=== PATIENT | female | born 1960 | race Caucasian/White ===

== ENCOUNTER 2021-12-30 13:52 | Outpatient (CLI) | payer MEDICAID | END 2021-12-30 13:53 | disposition critical access hospital (66) | LOC: EMS 13:52 | DX: R14.0 Abdominal distension (gaseous) (principal); R10.9 Unspecified abdominal pain; R60.0 Localized edema | CPT/HCPCS: A0425; A0429; A0999 ==

== ENCOUNTER 2021-12-30 14:13 | Observation (INO) | payer MEDICAID, OTHER ==
--- NOTE | 2021-12-30 14:30 | ED Physician Documentation ---
History of Present Illness - Stated complaint Stated Complaint: BILAT LEG PX - History obtained from History obtained from: Patient - History of Present Illness Timing: How many days ago (2) Pain level max: 3 Pain level now: 3 - Additonal information Additional information: Patient is a 61-year-old female with a history of alcoholic liver cirrhosis who presents to the emergency department complaining of increased swelling to the abdomen and bilateral lower extremities over the past several days. She states she is on medications at home but does not know what they are. She is visiting from [place]. She states that she is here for alcohol detox and rehab. She states that her medications are normally given to her in [place]. Diana dixon states that she had a recent stay at [facility] for 3 weeks, she then went home and started drinking again. Has been back in [facility] for 4 days now. No abdominal pain. No nausea or vomiting. No chest pain. No shortness of breath. Review of Systems Ten Systems: 10 systems reviewed and negative Constitutional: denies: Fever, Chills Respiratory: denies: Cough GI: denies: Nausea, Vomiting, Diarrhea Skin: denies: Rash Musculoskeletal: denies: Neck pain, Back pain Neurologic: denies: Headache PD PAST MEDICAL HISTORY - Past Medical History Past Medical History: Yes GI: Other (Alcoholic cirrhosis) - Allergies Allergies/Adverse Reactions: Allergies Allergy/AdvReac Type Severity Reaction Status Date / Time oxycodone [From OxyContin] Allergy Rash Verified 12/30/21 18:11 Penicillins Allergy Unknown Verified 12/30/21 16:39 - Living Situation Living Situation: reports: With family Living Arrangement: reports: At home - Social History Does the pt smoke?: Yes Does the pt drink ETOH?: Yes ETOH Use: Wine - Family History Family history: reports: Non contributory PD ED PE NORMAL - Vitals Vital signs reviewed: Yes - General General: Alert and oriented X 3, No acute distress - HEENT HEENT: PERRL, Moist mucous membranes - Neck Neck: Supple, no meningeal sign - Cardiac Cardiac: RRR, Strong equal pulses - Respiratory Respiratory: No respiratory distress, Clear bilaterally - Abdomen Abdomen: Soft, Other (Mild distention with ascites. No tenderness) - Rectal Rectal: Other (Edna RN, normal rectal exam. brown stool.) - Back Back: No spinal TTP - Derm Derm: Warm and dry - Extremities Extremities: Other (2+ bilateral lower extremity pitting edema) - Neuro Neuro: Alert and oriented X 3 - Psych Psych: Normal mood, Normal affect Results - Vitals Vitals: Vital Signs - 24 hr 12/30/21 14:22 Temperature 36.9 C Heart Rate 78 Respiratory 20 Rate Blood Pressure 151/87 H O2 Saturation 100 Oxygen O2 Source Room air - Labs Labs: Microbiology 12/30/21 15:30 Occult Blood - Final Stool Laboratory Tests 12/30/21 12/30/21 12/30/21 14:33 14:33 14:46 WBC 5.2 RBC 2.16 L Hgb 6.7 L* Hct 21.4 L MCV 99.1 H MCH 31.0 MCHC 31.3 L RDW 19.9 H Plt Count 259 MPV 10.9 H Neut # (Auto) 3.2 Lymph # (Auto) 1.2 L Schley # (Auto) 0.4 Eos # (Auto) 0.4 Baso # (Auto) 0.0 Absolute Nucleated RBC 0.00 Nucleated RBC % 0.0 PT 11.6 INR 1.0 Sodium Potassium Chloride Carbon Dioxide Anion Gap BUN Creatinine Estimated GFR (MDRD) Glucose Calcium Total Bilirubin AST ALT Alkaline Phosphatase Total Protein Albumin Globulin Albumin/Globulin Ratio Lipase Blood Type Blood Type Recheck O POSITIVE Antibody Screen Crossmatch IS Only 12/30/21 12/30/21 14:46 15:45 WBC RBC Hgb Hct MCV MCH MCHC RDW Plt Count MPV Neut # (Auto) Lymph # (Auto) Schley # (Auto) Eos # (Auto) Baso # (Auto) Absolute Nucleated RBC Nucleated RBC % PT INR Sodium 140 Potassium 4.4 Chloride 115 H Carbon Dioxide 18 L Anion Gap 7.0 BUN 29 H Creatinine 2.1 H Estimated GFR (MDRD) 24 L Glucose 94 Calcium 8.6 Total Bilirubin 0.6 AST 21 ALT 15 Alkaline Phosphatase 70 Total Protein 6.4 L Albumin 3.1 L Globulin 3.3 Albumin/Globulin Ratio 0.9 L Lipase 75 H Blood Type O POSITIVE Blood Type Recheck Antibody Screen NEGATIVE Crossmatch IS Only See Detail PD MEDICAL DECISION MAKING - ED course Complexity details: reviewed results, re-evaluated patient, considered differential, d/w patient, d/w sustainability consultant ED course: Patient is a 61-year-old female with a known history of alcoholic cirrhosis. She is unsure what medication she takes at home. [place] Noted increased swelling in her legs. Was given Lasix for the edema. Laboratory testing reveals anemia, hemoglobin 6.7. Will need blood transfusion. She states that she noticed a small amount of dark stool a few weeks ago but none since that time. She states that she has had endoscopies and colonoscopies in the past. She states the colonoscopies have been negative in the past, but the endoscopy did show a gastric ulcer. She is not currently on any medications that she is aware of for this. No abdominal pain. No chest pain. She does feel winded easily when walking. We will place the patient in observation for blood transfusion. She would likely need to follow-up with her doctor when she returns home to [place] for further evaluation. Discussed the case with Dr. Crawley, hospitalist who accepts This document was made in part using voice recognition software. While efforts are made to proofread this document, sound alike and grammatical errors may occur. Departure - Departure Disposition: ED Place in Observation Clinical Impression: Anemia Qualifiers: Anemia type: unspecified type Qualified Code(s): D64.9 - Anemia, unspecified Alcoholic cirrhosis of liver Qualifiers: Ascites presence: with ascites Qualified Code(s): K70.31 - Alcoholic cirrhosis of liver with ascites Condition: Stable Discharge Date/Time: 12/30/21 17:02
[2021-12-30 14:41] LABS: BASOPHILS % (AUTO) 0.8 %; EOSINOPHILS # (AUTO) 0.4 10^3/uL (0.0-0.7); EOSINOPHILS % (AUTO) 6.8 %; HCT - HEMATOCRIT 21.4 % (37.0-47.0); LYMPHOCYTES # (AUTO) 1.2 10^3/uL (1.5-3.5); LYMPHOCYTES % (AUTO) 22.4 %; MEAN CORPUSCULAR HGB CONC 31.3 g/dL (32.0-36.0); MEAN CORPUSCULAR VOLUME 99.1 fL (81.0-99.0); MEAN PLATELET VOLUME 10.9 fL (7.9-10.8); MONOCYTES # (AUTO) 0.4 10^3/uL (0.0-1.0); MONOCYTES % (AUTO) 8.1 %; NEUTROPHILS # (AUTO) 3.2 10^3/uL (1.5-6.6); NEUTROPHILS % (AUTO) 61.5 %; PLT - PLATELET COUNT 259 10^3/uL (130-450); RED BLOOD COUNT 2.16 10^6/uL (4.20-5.40); RED CELL DISTRIBUTION WIDTH 19.9 % (12.0-15.0); WHITE BLOOD COUNT 5.2 x10^3/uL (4.8-10.8)
[2021-12-30 14:46] LABS: HGB - HEMOGLOBIN 6.7 g/dL (12.0-16.0)
[2021-12-30 14:57] LABS: PT - PROTHROMBIN TIME 11.6 secs (9.9-12.6)
[2021-12-30 15:04] LABS: ALBUMIN 3.1 g/dL (3.2-5.5); ALBUMIN/GLOBULIN RATIO 0.9 (1.0-2.2); BILIRUBIN,TOTAL 0.6 mg/dL (0.2-1.0); CALCIUM 8.6 mg/dL (8.5-10.3); CREATININE 2.1 mg/dL (0.4-1.0); POTASSIUM 4.4 mmol/L (3.5-5.0); TOTAL PROTEIN 6.4 g/dL (6.7-8.2)
[2021-12-30] MEDS ORDERED: FUROSEMIDE 40 MG/4 ML VIAL IVP STA (15:16)
[2021-12-30] MEDS ORDERED: PANTOPRAZOLE 40 MG VIAL IVP STA (15:32)
[2021-12-30] MEDS ORDERED: ONDANSETRON 4 MG/2 ML VIAL IVP PRN (16:01)
[2021-12-30] MEDS ORDERED: ONDANSETRON ODT 4 MG TABLET TL PRN (16:01)
[2021-12-30] MEDS ORDERED: SODIUM CHLORIDE FLUSH 0.9% 10 ML SYRINGE IVP PRN (16:01)
--- NOTE | 2021-12-30 16:10 | HISTORY & PHYSICAL EXAMINATION ---
Chief Complaint - Chief Complaint Chief Complaint: legs are swollen History of Present Illness - Admitted From Admitted From:: [facility] - History Obtained From Records Reviewed: [facility] History obtained from: patient Exam Limitations: none - History of Present Illness HPI Comment/Other: 61-year-old female who drinks a bottle of wine a day and went through rehab. Her daughter approached her with intervention about a month ago. Told her she needed to stop drinking. The patient states that she had about 15 minutes to get dressed and ready and they left and she went to inpatient rehab for about 2 weeks. She got out of rehab. The day after she went right back to drinking. She drinks about a bottle of wine a day. She denies any alcohol withdrawal, seizures, syncope. She went back into rehab at this time went into [facility] in [place]. While there her legs were starting to hurt her. She noticed increasing edema. When he got to the point that it was interfering with mobility they sent her to our emergency room today. She says the swelling had started in her feet then it was in her calves. It started going up her thighs into her lower abdominal wall and buttock skin area and it scared her. She denies fever, chills. She denies cough, but feels exhausted and a little bit short of breath. Her weight has been all over the place. When she went into rehab she was 130 pounds. She dropped to 101 pounds at discharge she thinks. And in the last couple of days gone back up to 125 pounds. A while back, she does not remember 1, she does remember black stools. She thinks that she had an other episode of black stools about 3 weeks ago. But no vomiting of blood. She says she eats like a horse and has a great appetite. No epigastric discomfort, no nausea. Prior to this history, she was also seen at [facility] and had a work-up with EGD and colonoscopy. But she is vague about when that happens. She does not know if it was 1 month ago, 3 months ago, or 3 years ago. She also does not know why she went to [facility]. She cannot remember what diagnosis they gave her so when I explained to her that she has alcoholic liver disease she is surprised and tells me that no one is ever told her that she has cirrhosis. After discharge from [facility] she says that she was not given specific instructions. She does not have a primary care provider nor does she have a metal wire coating operator or liver specialist. In the emergency room her meld score is 14 points. Blood pressure is 151/87. Temperature is 36.9. 100% saturated on room air. She is a middle-aged lady who looks stated age. Well-groomed. BUN is 29, creatinine 2.1. Liver enzymes are normal. INR is 1. White cell count is 5.2, hemoglobin is 6.7. As such she is now placed in observation status to get a unit of blood. Since she is received a GI work-up, we do not feel the need to repeat that work-up here. Ultrasound in the ER shows her to have mild ascites. History - Past Medical History Cardiovascular: reports: None Respiratory: reports: None Neuro: reports: None Endocrine/Autoimmune: reports: None GI: reports: GI bleed (With anemia. She has been transfused once in the past. 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 Dad is still alive, has had heart attack. 1 brother and 1 sister. Brother has chronic leg edema and possibly congestive heart failure. Sister has mental illness. Her 3 children are healthy with no mental illness, alcoholism, high blood pressure, cancer, heart attack or stroke Living arrangement: At home Living Situation: With family Social History Notes: She was a brat and lived all over the [facility]. The longer she ever lived in one place was in [place] for 6 years. She moved to [facility] in [place]. Father continue to live all over the place and father settled in [place]. He had been living there for a while with his when she of a stroke. The patient went to go get her father and drove across country and initially moved her father in with her in Thursday. But she has too many stairs in her apartment so he lives at "the [facility]" now, a senior facility in [place]. She started smoking at the age of 17. Stopped when she was and then resumed 1 pack/day. She has been smoking regularly for at least 9 years again. She started drinking at the age of 13. Really started abusing it at the age of 17. 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 Last time she worked the spring 2020. - Substance History Abuse: Recurrent use of substance despite neg consequences: Alcohol, Other (tobacco) - POLST Patient has POLST: No POLST Status: Full Code Meds/Allgy - Allergies Allergies/Adverse Reactions: Allergies Allergy/AdvReac Type Severity Reaction Status Date / Time oxycodone [From OxyContin] Allergy Rash Verified 12/30/21 18:11 Penicillins Allergy Unknown Verified 12/30/21 16:39 Review of Systems - Constitutional Constitutional: reports: Fatigue, Weight gain, Weight loss. denies: Fever, Chills, Malaise - Eyes Eyes: reports: Vision loss. denies: Pain, Irritation, Amaurosis, Blurred vision - Ears, Nose & Throat Ears, Nose & Throat: denies: Ear pain, Hearing loss, Hearing aids, Nasal obstruction, Postnasal drainage, Sore throat, Hoarseness - Cardiovascular Cariovascular: reports: Edema, Exertional dyspnea, Decr. exercise tolerance. denies: Irregular heart rate, Palpitations, Chest pain, Lightheadedness, Syncope - Respiratory Respiratory: reports: Cough, SOB with exertion. denies: Sputum production, Wheezing, Snoring, SOB at rest - Gastrointestinal Gastrointestinal: reports: Abdominal distention, Rectal bleeding (once after the c-scope), Black stools. denies: Abdominal pain, Constipation, Diarrhea, Change in bowel habits - Genitourinary Genitourinary: reports: Incontinence. denies: Dysuria, Frequency, Urgency, Hematuria - Musculoskeletal Musculoskeletal: reports: Back pain, Muscle aches, Stiffness, Joint pain. denies: Muscle pain - Integumentary Integumentary: denies: Rash, Pruritis, Lesions, Dryness - Neurological Neurological: reports: Memory problems. denies: General weakness, Focal weakness, Headache, Dizziness, Pre-existing deficit, Abnormal gait, Seizures, Incoordination Prior Level of Functionality: Independent with activities of daily living. Helps take care of her father. Relies on him for their income to pay for his bills and her bills. Does not use any durable medical equipment. Still drives. Pays bills. Cleans house. Exam - Vital Signs Reviewed Vital Signs: Yes Vital Signs: Vital Signs x48h Temp Pulse Resp BP Pulse Ox 12/30/21 14:22 36.9 C 78 20 151/87 H 100 - Physical Exam General Appearance: positive: No acute distress, Alert, Other (Middle-aged female, looks stated age, well-nourished, well-groomed no tremulousness or diaphoresis) Eyes Bilateral: positive: PERRL, EOMI, Other (Wearing glasses) ENT: positive: No signs of dehydration Neck: positive: No JVD. negative: Stiff neck Respiratory: positive: No respiratory distress. negative: Wheezes, Rales, Rhonchi Cardiovascular: positive: Regular rate & rhythm. negative: Gallop/S4, Friction rub Abdomen: positive: Non-tender, No organomegaly, Nml bowel sounds, No distention Skin: positive: Warm, Dry Extremities: positive: Full ROM, Pedal edema (That extends all the way up to the thighs) Neurologic/Psychiatric: positive: Oriented x3 (But vague on memory. Admits that she is starting to lose her memory), CN's nml (2-12), Motor nml Conclusion/Plan - Problem List (1) Anemia Conclusion/Plan: Differential diagnosis in a patient who has alcohol abuse could be esophageal varices, gastritis. She denies diverticulosis history of gastric ulcer history. Plan: She she is already had a work-up in the recent past, I do not think that she needs to stay in the hospital to repeat an EGD or colonoscopy. She will be transfused 1 unit to get her above 7 g. I have asked her to make sure that she takes B12, B6, and iron on a regular basis. She says that she should take iron and it has changed her stool black in the past. She does not think that is what was going on when her school was black 3 weeks ago. Have also asked her to take a Protonix tablet or equivalent once a day for the next month. She needs to establish yourself with a primary care provider and be seen minimum of every 4 to 6 months. I have asked our health chemical unit operator to please get records from [facility] so I can review and verify her work-up. Qualifiers: Anemia type: unspecified type Qualified Code(s): D64.9 - Anemia, unspecified (2) Alcoholic cirrhosis of liver Conclusion/Plan: Started on spironolactone 25 twice daily. Get old records from [facility] so I can look at EGD and colonoscopy. Because of edema, which was the reason she was brought to the emergency room, I would think that she would be discharged on spironolactone 25 mg a day if not 25 mg twice a day. She would then need to establish self with a primary care provider to make sure BMP and CBC were stable. Qualifiers: Ascites presence: with ascites Qualified Code(s): K70.31 - Alcoholic cirrhosis of liver with ascites (3) Acute kidney insufficiency Conclusion/Plan: It is unknown what her baseline status is. Again I will get records from [facility]. She does not appear to be in hepatorenal failure. She will be getting a unit of blood. I will be starting p.o. spironolactone. Maybe 1 dose of IV Lasix to help the edema in her legs. - Lab Results Lab results reviewed: Yes Vipin Bones: 12/30/21 14:33 12/30/21 14:46 Core Measures - Anticipated LOS I expect patient to be DC'd or transferred within 96 hours.: Yes - DVT/VTE - Prophylaxis VTE/DVT Device ordered at admit?: Yes
[2021-12-30] MEDS: SODIUM CHLORIDE FLUSH 0.9% 10 ML SYRINGE IVP SCH ×2 (17:57→23:35)
[2021-12-30] MEDS: oxyCODONE 5 MG TABLET PO PRN (18:06)
[2021-12-30 18:56] LABS: B. PARAPERTUSSIS- RESP PCR PAN NOT DETECTED; B. PERTUSSIS- RESP PCR PANEL NOT DETECTED; C. PNEUMONIAE- RESP PCR PANEL NOT DETECTED; CORONAVIRUS 229E-RESP PCR NOT DETECTED; CORONAVIRUS HKU1-RESP PCR NOT DETECTED; CORONAVIRUS NL63-RESP PCR NOT DETECTED; CORONAVIRUS OC43-RESP PCR NOT DETECTED; HUMAN METAPNEUMOVIRUS NOT DETECTED; INFLUENZA A- RESP PCR PANEL NOT DETECTED; INFLUENZA B - RESP PCR PANEL NOT DETECTED; M. PNEUMONIAE- RESP PCR PANEL NOT DETECTED; PARAINFLUENZA VIRUS 1 NOT DETECTED; PARAINFLUENZA VIRUS 2 NOT DETECTED; PARAINFLUENZA VIRUS 3 NOT DETECTED; PARAINFLUENZA VIRUS 4 NOT DETECTED; RHINOVIRUS/ENTEROVIRUS NOT DETECTED; RSV- RESP PCR PANEL NOT DETECTED; SARS-CoV-2 -RESP PCR PANEL NOT DETECTED
[2021-12-30] MEDS: LACTULOSE 10 GM /15 ML UDC PO SCH (20:39)
[2021-12-30] MEDS: SPIRONOLACTONE 25 MG TABLET PO SCH (20:39)
[2021-12-30] MEDS ORDERED: methocarbamoL 500 MG TABLET PO PRN (22:46)
[2021-12-30] MEDS ORDERED: traZODone 50 MG TABLET PO PRN (22:47)
[2021-12-30] MEDS: hydrOXYzine PAMOATE 25 MG CAPSULE PO PRN (23:03)
[2021-12-30] MEDS ORDERED: methocarbamoL 500 MG TABLET PO ONE ×2 (23:13→23:17)
[2021-12-30] MEDS: methocarbamoL 500 MG TABLET PO PRN (23:34)
[2021-12-31 04:52] LABS: HCT - HEMATOCRIT 22.1 % (37.0-47.0); HGB - HEMOGLOBIN 7.1 g/dL (12.0-16.0); MEAN CORPUSCULAR HEMOGLOBIN 30.7 pg (27.0-31.0); MEAN CORPUSCULAR HGB CONC 32.1 g/dL (32.0-36.0); MEAN CORPUSCULAR VOLUME 95.7 fL (81.0-99.0); MEAN PLATELET VOLUME 10.5 fL (7.9-10.8); RED BLOOD COUNT 2.31 10^6/uL (4.20-5.40); RED CELL DISTRIBUTION WIDTH 20.3 % (12.0-15.0); WHITE BLOOD COUNT 4.9 x10^3/uL (4.8-10.8)
[2021-12-31 05:03] LABS: CALCIUM 8.7 mg/dL (8.5-10.3); CREATININE 2.4 mg/dL (0.4-1.0); POTASSIUM 4.8 mmol/L (3.5-5.0)
[2021-12-31] MEDS: methocarbamoL 500 MG TABLET PO PRN (05:17)
[2021-12-31] MEDS: hydrOXYzine PAMOATE 25 MG CAPSULE PO PRN (06:06)
[2021-12-31] MEDS ORDERED: PANTOPRAZOLE 40 MG TABLET PO SCH (07:00)
[2021-12-31] MEDS: LACTULOSE 10 GM /15 ML UDC PO SCH (08:16)
[2021-12-31] MEDS: SODIUM CHLORIDE FLUSH 0.9% 10 ML SYRINGE IVP SCH (08:16)
[2021-12-31] MEDS: SPIRONOLACTONE 25 MG TABLET PO SCH (08:16)
[2021-12-31] MEDS: oxyCODONE 5 MG TABLET PO PRN (10:47)
[2021-12-31] MEDS ORDERED: THIAMINE 100 MG TABLET PO SCH (11:00)
[2021-12-31 11:45] VITALS: BP 129/86
[2021-12-31] MEDS ORDERED: PRENATAL VITAMIN TABLET PO SCH (12:00)
--- NOTE | 2021-12-31 12:22 | Discharge Plan ---
Discharge Plan Problem Reviewed?: Yes Disposition: Home, Self Care Condition: Fair Prescriptions: oxyCODONE [Roxicodone] 5 mg PO Q8HR PRN #10 tablet PRN Reason: Pain 5 to 7 Spironolactone [Aldactone] 25 mg PO BID #60 tablet Pantoprazole [Protonix] 40 mg PO BID #60 tablet Thiamine [Vitamin B-1] 100 mg PO DAILY #30 tablet Diet: Low Sodium Activity Restrictions: Remain off alcohol intake Shower Restrictions: No Instruction Topics: ED Ascites, ED Cirrhosis Liver Health Concerns: You were in the hospital to get a blood transfusion since you were found to be very anemic. It is possibly caused by blood loss from your gastrointestinal tract. We also adjusted your medications for the fluid in your abdomen and legs which is called ascites. This has been caused by liver cirrhosis from your alcohol abuse. There was no sampling using a needle, of the fluid in your abdomen, while you were here, since the evaluation has already been started at [facility]. Plan of Treatment: You are being discharged with several new medications, these were electronically sent to the [facility] pharmacy in [place]. One is a medication to eliminate the excess fluid in your abdomen and legs called Spironolactone. Another is a medicine to heal any potential ulcer in your gastrointestinal tract, called Protonix. Another is Thiamine vitamin to take when you have liver cirrhosis. And some pain medicine (Oxycodone) has been ordered for you. Care Goals: Improvement in symptoms and stabilization are the goals. Assessment: These written instructions are provided to you as a reminder. Additional Instructions or Follow Up instructions: You need to establish medical follow-up with a Primary Care Provider and you would also benefit from having established care with a Liver Specialist or Web User Experience Strategist. You must have been seen by a Web User Experience Strategist when you were in [facility] in [place]. We requested, but never received the records from that hospital, to review what was done for you there. No Smoking: If you smoke, Please STOP! Call for help.
--- NOTE | 2021-12-31 12:43 | DISCHARGE SUMMARY ---
Discharge Summary Admit Date: 12/30/21 Discharge Date: 12/31/21 Discharging Provider: Dr Jael Garcia Primary Care Provider: PCP in [facility] Code Status: Attempt Resuscitation Condition at Discharge: Fair Discharge Disposition: 01 Home, Self Care - HPI History of Present Illness: 61-year-old female who drinks a bottle of wine a day and went through rehab. Her daughter approached her with intervention about a month ago. Told her she needed to stop drinking. The patient states that she had about 15 minutes to get dressed and ready and they left and she went to inpatient rehab for about 2 weeks. She got out of rehab. The day after she went right back to drinking. She drinks about a bottle of wine a day. She denies any alcohol withdrawal, seizures, syncope. She went back into rehab at this time went into [facility] in [place]. While there her legs were starting to hurt her. She noticed increasing edema. When he got to the point that it was interfering with mobility they sent her to our emergency room today. She says the swelling had started in her feet then it was in her calves. It started going up her thighs into her lower abdominal wall and buttock skin area and it scared her. She denies fever, chills. She denies cough, but feels exhausted and a little bit short of breath. Her weight has been all over the place. When she went into rehab she was 130 pounds. She dropped to 101 pounds at discharge she thinks. And in the last couple of days gone back up to 125 pounds. A while back, she does not remember 1, she does remember black stools. She thinks that she had an other episode of black stools about 3 weeks ago. But no vomiting of blood. She says she eats like a horse and has a great appetite. No epigastric discomfort, no nausea. Prior to this history, she was also seen at [facility] and had a work-up with EGD and colonoscopy. But she is vague about when that happens. She does not know if it was 1 month ago, 3 months ago, or 3 years ago. She also does not know why she went to [facility]. She cannot remember what diagnosis they gave her so when I explained to her that she has alcoholic liver disease she is surprised and tells me that no one is ever told her that she has c irrhosis. After discharge from [facility] she says that she was not given specific instructions. She does not have a primary care provider nor does she have a harness and bag inspector or liver specialist. In the emergency room her meld score is 14 points. Blood pressure is 151/87. Temperature is 36.9. 100% saturated on room air. She is a middle-aged lady who looks stated age. Well-groomed. BUN is 29, creatinine 2.1. Liver enzymes are normal. INR is 1. White cell count is 5.2, hemoglobin is 6.7. As such she is now placed in observation status to get a unit of blood. Since s he is received a GI work-up, we do not feel the need to repeat that work-up here. Ultrasound in the ER shows her to have mild ascites. - HOSPITAL COURSE Hospital Course: (1) Anemia Differential diagnosis in a patient who had alcohol abuse would be esophageal varices, gastritis or ulcer. We asked for records from [facility] but they did not arrive before she was discharged. She had a work-up in the recent past, therefore we did not repeat an EGD or colonoscopy. She was transfused 1 unit of PRBCs to get her above 7 g. We also ordered empiric Protonix b.i.d. for the next month. She needs to establish with a primary care provider (locally if she will be staying in [place]) and be seen minimum of every 4 to 6 months. (2) Alcoholic cirrhosis of liver with ascites She was started on spironolactone 25 twice daily , daily Thiamine and also several tablets of oxycodone, for pain (from the distended abdomen and legs) were ordered. She needs to establish with a primary care provider (locally if she will be staying in [place]) and be seen minimum of every 4 to 6 months. (3) Acute kidney insufficiency It is unknown what her baseline creat is and unclear if she has hepatorenal failure. She got a unit of blood and we started p.o. Spironolactone. BUN/creat at discharge were 39/2.4. - ALLERGIES Allergies/Adverse Reactions: Allergies Allergy/AdvReac Type Severity Reaction Status Date / Time Penicillins Allergy Unknown Verified 12/30/21 16:39 - MEDICATIONS Home Medications: Ambulatory Orders Medication Instructions Recorded Confirmed Gabapentin [Neurontin] 300 mg PO TID PRN 12/31/21 12/31/21 Multivit,Calc,Mins/Iron/Folic 1 tab PO DAILY 12/31/21 12/31/21 [Therapeutic-M Tablet] Ondansetron [Ondansetron Odt] 4 mg PO Q8H PRN MDD 6 12/31/21 12/31/21 Pantoprazole [Protonix] 40 mg PO BID #60 tablet 12/31/21 Spironolactone [Aldactone] 25 mg PO BID #60 tablet 12/31/21 Thiamine [Vitamin B-1] 100 mg PO DAILY #30 tablet 12/31/21 cloNIDine [Catapres] 0.1 mg PO Q4H PRN MDD 4 12/31/21 12/31/21 hydrOXYzine HCL [Hydroxyzine HCl] 50 mg PO Q6H PRN 12/31/21 12/31/21 methocarbamoL [Methocarbamol] 1,500 mg PO Q6H PRN MDD 6 12/31/21 12/31/21 oxyCODONE [Roxicodone] 5 mg PO Q8HR PRN #10 tablet 12/31/21 traZODone [Desyrel] 50 mg PO HS 12/31/21 12/31/21 - PHYSICAL EXAM AT DISCHARGE General Appearance: positive: No acute distress, Alert Eyes Bilateral: positive: Normal inspection, EOMI, No scleral icterus ENT: positive: ENT inspection nml, No signs of dehydration Neck: positive: Nml inspection, No JVD Respiratory: positive: No respiratory distress, Breath sounds nml Cardiovascular: positive: Regular rate & rhythm, No murmur Abdomen: positive: Non-tender, Nml bowel sounds, Other (Minimal distension, but abd is soft) Skin: positive: Warm, Dry, Pallor Neurologic/Psychiatric: positive: Oriented x3 (Non-focal, but an intermittent hand tremor was seen.) - LABS Result Diagrams: 12/31/21 04:45 12/31/21 04:45 - FOLLOW UP Follow Up: Needs a local PCP (if she is staying on [facility]). - TIME SPENT Time Spent in Discharge (Minutes): 40
== END 2021-12-31 15:02 | disposition home or self-care (01) ==
LOC: ED 14:13 → MS2 16:02
PROVIDERS: ADMIT Specialist; ATTEND Internal Medicine
DX: D64.9 Anemia, unspecified (principal); K70.31 Alcoholic cirrhosis of liver with ascites; R60.0 Localized edema; F10.10 Alcohol abuse, uncomplicated; N28.9 Disorder of kidney and ureter, unspecified; F17.200 Nicotine dependence, unspecified, uncomplicated; Z20.822 Contact with and (suspected) exposure to COVID-19
CPT/HCPCS: 36415; 36430; 80048; 80053; 82272; 83690; 85025; 85027; 85610; 86850; 86900; 86901; 86920; 87633; 96374; 96375; 99284; 99285; A9270; G0378; P9016